=== PATIENT | female | born 1970 | race Caucasian/White ===

== ENCOUNTER 2023-02-15 22:06 | Emergency (ER) | payer MEDICARE, OTHER ==
[2023-02-15 23:14] VITALS: BP 120/60; PULSE 53
== END 2023-02-16 00:04 | disposition home or self-care (01) ==
LOC: JP.ED 22:06
DX: S93.402A Sprain of unspecified ligament of left ankle, initial encounter (principal); X50.1XXA Overexertion from prolonged static or awkward postures, initial encounter
CPT/HCPCS: 99283

== ENCOUNTER 2025-01-17 21:22 | Emergency (ER) | payer MEDICARE, OTHER ==
[2025-01-17] MEDS ORDERED: Naloxone 0.4 MG/ML SDV IVPUSH PRN (21:51)
[2025-01-17] MEDS: fentaNYL 100 MCG/2 ML SDV NASBOTH ONE (22:01)
[2025-01-17 22:42] VITALS: BP 126/78; PULSE 61
[2025-01-17] MEDS ORDERED: Propofol 200 MG/20 ML SDV ONE (23:27)
== END 2025-01-17 23:56 | disposition home or self-care (01) ==
LOC: JP.ED 21:22
DX: S52.572A Other intraarticular fracture of lower end of left radius, initial encounter for closed fracture (principal); Z79.899 Other long term (current) drug therapy; Z90.49 Acquired absence of other specified parts of digestive tract; Z90.710 Acquired absence of both cervix and uterus; W01.198A Fall on same level from slipping, tripping and stumbling with subsequent striking against other object, initial encounter
CPT/HCPCS: 01820; 25605; 73090; 76000; 99152; 99283; 99284; J2704; J3010